=== PATIENT | male | born 1955 | race Asian ===

== ENCOUNTER 2021-04-13 09:51 | Inpatient (IN) | payer MEDICARE, OTHER ==
[~2021-04-13] VITALS: Ht 162.6 cm; Wt 65.8 kg
[2021-04-13] MEDS ORDERED: TACR1CAP12 PO (10:18)
[2021-04-13] MEDS ORDERED: INSLAN SQ (10:18)
[2021-04-13] MEDS ORDERED: MAGN400T7 PO (10:18)
[2021-04-13] MEDS ORDERED: DULA0.75 SQ (10:18)
[2021-04-13] MEDS ORDERED: CARV25 PO (10:18)
[2021-04-13] MEDS ORDERED: TRI115O TP (10:18)
[2021-04-13] MEDS ORDERED: NIFE-64 PO (10:18)
[2021-04-13] MEDS ORDERED: MYCO250C27 PO (10:18)
[2021-04-13] MEDS ORDERED: PRED-409 PO (10:18)
[2021-04-13] MEDS ORDERED: ASPI-1450 PO (10:18)
[2021-04-13] MEDS ORDERED: FOLI0.8T21 PO (10:18)
[2021-04-13] MEDS ORDERED: TAMS-13 PO (10:18)
[2021-04-13] MEDS ORDERED: FURO20 PO (10:18)
[2021-04-13] MEDS ORDERED: ATOR40TA28 PO (10:18)
[2021-04-13] MEDS ORDERED: OMEP20 PO (10:18)
[2021-04-13] MEDS ORDERED: HYDROCORTISONE SOD SUCC 100 MG/2 ML VIAL IVP ONE (11:45)
[2021-04-13] MEDS ORDERED: SODIUM CHLORIDE 0.9% 1,000 ML IV ONE ×2 (11:45→15:45)
[2021-04-13 12:28] LABS: EOSINOPHILS % (AUTO) 0.1 % (1.0-6.0); HEMATOCRIT 35.8 % (41-53); HEMOGLOBIN 12.1 g/dL (13.5-17.5); LYMPHOCYTES # (AUTO) 0.2 K/uL (1.0-4.8); LYMPHOCYTES % (AUTO) 1.9 % (22.0-44.0); MEAN CORPUSCULAR HEMOGLOBIN 29.3 pg (26.0-34.0); MEAN CORPUSCULAR HGB CONC 33.8 G/dL (31.0-37.0); MEAN CORPUSCULAR VOLUME 87 fL (80-100); MONOCYTES # (AUTO) 0.5 K/uL (0.1-1.0); MONOCYTES % (AUTO) 5.7 % (2.0-9.0); NEUTROPHILS # (AUTO) 7.5 K/uL (1.8-7.7); PLATELET COUNT (AUTO) 216 K/uL (150-450); RED BLOOD CELL COUNT(AUTO) 4.13 MIL/uL (4.50-5.90); RED CELL DISTRIBUTION WIDTH 13.2 % (11.5-14.5)
[2021-04-13 12:29] LABS: COVID AG,FIA SOURCE NASOPHARYNGEAL
[2021-04-13 12:29] LABS: NEUTROPHILS % (AUTO) 92.3 % (40.0-70.0)
[2021-04-13 12:34] LABS: CALCIUM, TOTAL 8.7 mg/dL (8.8-10.5); CREATININE 2.96 mg/dL (0.60-1.30); POTASSIUM 4.7 mmol/L (3.5-5.1)
[2021-04-13 12:40] LABS: ALBUMIN 3.1 g/dL (3.4-5.0); BILIRUBIN,TOTAL 0.7 mg/dL (0.1-1.0)
[2021-04-13] MEDS ORDERED: ACETAMINOPHEN 325 MG TABLET PO PRN (13:45)
[2021-04-13] MEDS ORDERED: ONDANSETRON HCL 4 MG/2 ML VIAL IVP PRN (13:45)
[2021-04-13 18:21] LABS: GLUCOMETER DEV NAME(LOC) ERT.5; GLUCOSE,POINT OF CARE 286 MG/DL (70-110)
[2021-04-13] MEDS ORDERED: IPRATROPIUM BROMIDE 0.5 MG/2.5 ML NEB SOLUTION NEB PRN (20:45)
[2021-04-13] MEDS ORDERED: ZOLPIDEM TARTRATE 5 MG TABLET PO PRN (20:45)
[2021-04-13] MEDS ORDERED: MORPHINE SULFATE 2 MG/ML SYRINGE IVP PRN (20:45)
[2021-04-13] MEDS ORDERED: AZITHROMYCIN 500 MG/NS 250 ML IV ONE (20:45)
[2021-04-13] MEDS ORDERED: ALBUTEROL SULFATE 2.5 MG/0.5 ML NEB SOLUTION NEB PRN (20:45)
[2021-04-13] MEDS ORDERED: HYDROCODONE/ACETAMINOPHEN 5-325 MG TABLET PO PRN (20:45)
[2021-04-13] MEDS ORDERED: BISACODYL 10 MG RECTAL RECTAL SUPPOSITORY PR PRN (20:45)
[2021-04-13] MEDS ORDERED: MAGNESIUM HYDROXIDE SUSPENSION 30 ML UDCUP PO PRN (20:45)
[2021-04-13] MEDS: TACROLIMUS 1 MG CAPSULE PO SCH (20:55)
[2021-04-13] MEDS: MYCOPHENOLATE MOFETIL 250 MG CAPSULE PO SCH (20:55)
[2021-04-13 21:00] VITALS: BP 120/63
[2021-04-13] MEDS: DOCUSATE SODIUM 100 MG CAPSULE PO SCH (21:00)
[2021-04-13] MEDS ORDERED: SODIUM CHLORIDE 0.9% 250 ML IV ONE (21:27)
[2021-04-13 22:54] LABS: INFLUENZA TYPE A NEGATIVE FOR TYPE A (NEGATIVE); INFLUENZA TYPE B NEGATIVE FOR TYPE B (NEGATIVE)
[2021-04-13] MEDS ORDERED: INSULIN REGULAR, HUMAN 100 UNITS/ML SQ ONE (23:15)
[2021-04-13] MEDS: CefTRIAXone 1 GM/DEXTROSE 50 ML IV SCH (23:46)
[2021-04-13] MEDS: HEPARIN SODIUM,PORCINE 5,000 UNITS/ML VIAL SQ SCH (23:46)
[2021-04-13 23:49] VITALS: BP 112/52
[2021-04-14 04:23] VITALS: BP 108/59
[2021-04-14] MEDS ORDERED: DEXTROSE 50%-WATER 25 GM/50 ML SYRINGE IVP PRN (06:30)
[2021-04-14] MEDS: INSULIN LISPRO 100 UNITS/ML SQ PRN ×3 (06:35→21:02)
[2021-04-14 07:55] VITALS: BP 110/58
[2021-04-14 08:16] LABS: CALCIUM, TOTAL 8.3 mg/dL (8.8-10.5); CREATININE 2.54 mg/dL (0.60-1.30); POTASSIUM 4.1 mmol/L (3.5-5.1)
[2021-04-14] MEDS ORDERED: [UNRECOGNIZED DRUG - OTHER] PO SCH (09:00)
[2021-04-14] MEDS: MYCOPHENOLATE MOFETIL 250 MG CAPSULE PO SCH ×2 (10:04→20:48)
[2021-04-14] MEDS: TACROLIMUS 1 MG CAPSULE PO SCH ×2 (10:05→20:48)
[2021-04-14] MEDS: PredniSONE 5 MG TABLET PO SCH (10:06)
[2021-04-14] MEDS: ASPIRIN 81 MG CHEWABLE TABLET PO SCH (10:06)
[2021-04-14] MEDS: ATORVASTATIN CALCIUM 40 MG TABLET PO SCH (10:06)
[2021-04-14] MEDS: TAMSULOSIN HCL 0.4 MG CAPSULE PO SCH (10:07)
[2021-04-14] MEDS: DOCUSATE SODIUM 100 MG CAPSULE PO SCH ×2 (10:07→20:49)
[2021-04-14] MEDS: PANTOPRAZOLE SODIUM 40 MG/VIAL IVP SCH (10:07)
[2021-04-14] MEDS: HEPARIN SODIUM,PORCINE 5,000 UNITS/ML VIAL SQ SCH ×2 (10:09→18:27)
[2021-04-14] MEDS: ETHYL ALCOHOL 62% ANTISEPTIC NASAL INHALANT 0.6 ML AMPUL NASAL SCH ×2 (10:12→20:48)
[2021-04-14] MEDS: INSULIN GLARGINE,HUM.REC.ANLOG 100 UNITS/ML SQ SCH (10:14)
[2021-04-14] MEDS: OMEPRAZOLE 20 MG CAPSULE PO SCH (10:16)
[2021-04-14] MEDS ORDERED: SODIUM CHLORIDE 0.9% 1,000 ML IV ONE (10:45)
[2021-04-14 11:57] VITALS: BP 127/62
[2021-04-14] MEDS: VITAMIN B COMP/VIT C/FOLIC ACID CAPSULE PO SCH (12:08)
[2021-04-14 12:27] LABS: GLUCOMETER DEV NAME(LOC) 5N.3; GLUCOSE,POINT OF CARE 411 MG/DL (70-110)
[2021-04-14 16:15] VITALS: BP 105/51
[2021-04-14 17:52] LABS: GLUCOMETER DEV NAME(LOC) 5N.1C; GLUCOSE,POINT OF CARE 116 MG/DL (70-110)
[2021-04-14 20:25] VITALS: BP 135/73
[2021-04-14] MEDS: CefTRIAXone 1 GM/DEXTROSE 50 ML IV SCH (20:48)
[2021-04-14 23:45] VITALS: BP 102/74
[2021-04-15] MEDS: HEPARIN SODIUM,PORCINE 5,000 UNITS/ML VIAL SQ SCH ×4 (00:37→23:57)
[2021-04-15 06:49] LABS: CREATININE 2.56 mg/dL (0.60-1.30); MAGNESIUM 1.6 mg/dL (1.80-2.40); PHOSPHORUS 3.2 mg/dL (2.5-4.9); POTASSIUM 4.6 mmol/L (3.5-5.1)
[2021-04-15 08:11] LABS: GLUCOMETER DEV NAME(LOC) 5N.1C; GLUCOSE,POINT OF CARE 216 MG/DL (70-110)
[2021-04-15 08:11] LABS: GLUCOMETER DEV NAME(LOC) 5N.1C; GLUCOSE,POINT OF CARE 71 MG/DL (70-110)
[2021-04-15 08:11] LABS: GLUCOMETER DEV NAME(LOC) 5N.1C; GLUCOSE,POINT OF CARE 223 MG/DL (70-110)
[2021-04-15 08:18] VITALS: BP 140/67
[2021-04-15] MEDS: TACROLIMUS 1 MG CAPSULE PO SCH ×2 (08:34→20:28)
[2021-04-15] MEDS: ATORVASTATIN CALCIUM 40 MG TABLET PO SCH (08:34)
[2021-04-15] MEDS: TAMSULOSIN HCL 0.4 MG CAPSULE PO SCH (08:34)
[2021-04-15] MEDS: MYCOPHENOLATE MOFETIL 250 MG CAPSULE PO SCH ×2 (08:34→20:28)
[2021-04-15] MEDS: VITAMIN B COMP/VIT C/FOLIC ACID CAPSULE PO SCH (08:34)
[2021-04-15] MEDS: ASPIRIN 81 MG CHEWABLE TABLET PO SCH (08:35)
[2021-04-15] MEDS: PANTOPRAZOLE SODIUM 40 MG/VIAL IVP SCH (08:35)
[2021-04-15] MEDS: DOCUSATE SODIUM 100 MG CAPSULE PO SCH ×2 (08:35→20:29)
[2021-04-15] MEDS: ETHYL ALCOHOL 62% ANTISEPTIC NASAL INHALANT 0.6 ML AMPUL NASAL SCH ×2 (08:35→20:27)
[2021-04-15] MEDS: OMEPRAZOLE 20 MG CAPSULE PO SCH (08:35)
[2021-04-15] MEDS: PredniSONE 5 MG TABLET PO SCH (08:37)
[2021-04-15] MEDS: INSULIN GLARGINE,HUM.REC.ANLOG 100 UNITS/ML SQ SCH (08:39)
[2021-04-15] MEDS: INSULIN LISPRO 100 UNITS/ML SQ PRN ×3 (11:10→20:27)
[2021-04-15 11:16] LABS: GLUCOMETER DEV NAME(LOC) 5N.1C; GLUCOSE,POINT OF CARE 117 MG/DL (70-110)
[2021-04-15 11:36] VITALS: BP 142/65
[2021-04-15 14:44] LABS: C-REACTIVE PROTEIN QUANT 6.28 mg/dL (0.00-0.30)
[2021-04-15 16:02] VITALS: BP 138/79
[2021-04-15 17:36] LABS: APPEARANCE,URINE CLEAR (CLEAR); BILIRUBIN,URINE NEGATIVE (NEGATIVE); GLUCOSE, URINE (UA) NEGATIVE (NEGATIVE); KETONES,URINE NEGATIVE (NEGATIVE); LEUKOCYTE ESTERASE ,URINE NEGATIVE (NEGATIVE); NITRATE,URINE NEGATIVE (NEGATIVE); OCCULT BLOOD,URINE NEGATIVE (NEGATIVE); PH,URINE 5.5 (5.0-8.0); PROTEIN,URINE TRACE (NEGATIVE); UROBILINOGEN,URINE 0.2 mg/dL (<=1.0)
[2021-04-15 17:37] LABS: CREATININE,URINE RANDOM 116.8 mg/dL (30.0-125.0); SODIUM,URINE RANDOM 45 mmol/l (20-110)
[2021-04-15 20:13] VITALS: BP 141/74
[2021-04-15] MEDS: CefTRIAXone 1 GM/DEXTROSE 50 ML IV SCH (20:27)
[2021-04-15 20:52] LABS: GLUCOMETER DEV NAME(LOC) 5N.3; GLUCOSE,POINT OF CARE 194 MG/DL (70-110)
[2021-04-15 20:52] LABS: GLUCOMETER DEV NAME(LOC) 5N.3; GLUCOSE,POINT OF CARE 210 MG/DL (70-110)
[2021-04-16 00:45] VITALS: BP 115/63
[2021-04-16 05:04] VITALS: BP 138/80
[2021-04-16 06:07] LABS: GLUCOMETER DEV NAME(LOC) 5N.1C; GLUCOSE,POINT OF CARE 145 MG/DL (70-110)
[2021-04-16 07:46] LABS: GLUCOMETER DEV NAME(LOC) 5N.3; GLUCOSE,POINT OF CARE 105 MG/DL (70-110)
[2021-04-16 07:55] VITALS: BP 139/78
[2021-04-16] MEDS: TAMSULOSIN HCL 0.4 MG CAPSULE PO SCH (08:02)
[2021-04-16] MEDS: OMEPRAZOLE 20 MG CAPSULE PO SCH (08:02)
[2021-04-16] MEDS: DOCUSATE SODIUM 100 MG CAPSULE PO SCH ×2 (08:02→19:59)
[2021-04-16] MEDS: HEPARIN SODIUM,PORCINE 5,000 UNITS/ML VIAL SQ SCH ×2 (08:02→16:05)
[2021-04-16] MEDS: ASPIRIN 81 MG CHEWABLE TABLET PO SCH (08:02)
[2021-04-16] MEDS: PANTOPRAZOLE SODIUM 40 MG/VIAL IVP SCH (08:02)
[2021-04-16] MEDS: TACROLIMUS 1 MG CAPSULE PO SCH ×2 (08:02→19:59)
[2021-04-16] MEDS: ATORVASTATIN CALCIUM 40 MG TABLET PO SCH (08:02)
[2021-04-16] MEDS: VITAMIN B COMP/VIT C/FOLIC ACID CAPSULE PO SCH (08:03)
[2021-04-16] MEDS: PredniSONE 5 MG TABLET PO SCH (08:03)
[2021-04-16] MEDS: ETHYL ALCOHOL 62% ANTISEPTIC NASAL INHALANT 0.6 ML AMPUL NASAL SCH ×2 (08:11→19:59)
[2021-04-16] MEDS: MYCOPHENOLATE MOFETIL 250 MG CAPSULE PO SCH ×2 (08:11→19:59)
[2021-04-16] MEDS: INSULIN GLARGINE,HUM.REC.ANLOG 100 UNITS/ML SQ SCH (08:19)
[2021-04-16 10:28] LABS: CALCIUM, TOTAL 9.1 mg/dL (8.8-10.5); CREATININE 2.99 mg/dL (0.60-1.30); PHOSPHORUS 2.6 mg/dL (2.5-4.9); POTASSIUM 4.3 mmol/L (3.5-5.1)
[2021-04-16 11:16] VITALS: BP 143/84
[2021-04-16 15:22] VITALS: BP 138/67
[2021-04-16 15:36] LABS: GLUCOMETER DEV NAME(LOC) 5N.1C; GLUCOSE,POINT OF CARE 111 MG/DL (70-110)
[2021-04-16] MEDS: INSULIN LISPRO 100 UNITS/ML SQ PRN (17:24)
[2021-04-16 17:31] LABS: GLUCOMETER DEV NAME(LOC) 5N.3; GLUCOSE,POINT OF CARE 186 MG/DL (70-110)
[2021-04-16] MEDS: CefTRIAXone 1 GM/DEXTROSE 50 ML IV SCH (19:58)
[2021-04-16 20:08] VITALS: BP 149/73
[2021-04-17] MEDS: HEPARIN SODIUM,PORCINE 5,000 UNITS/ML VIAL SQ SCH ×3 (00:21→15:52)
[2021-04-17 00:44] VITALS: BP 135/70
[2021-04-17 04:20] VITALS: BP 150/88
[2021-04-17 05:42] LABS: GLUCOMETER DEV NAME(LOC) 5N.1C; GLUCOSE,POINT OF CARE 110 MG/DL (70-110)
[2021-04-17 06:11] LABS: GLUCOMETER DEV NAME(LOC) 5N.3; GLUCOSE,POINT OF CARE 101 MG/DL (70-110)
[2021-04-17 07:45] LABS: CALCIUM, TOTAL 8.9 mg/dL (8.8-10.5); CREATININE 3.22 mg/dL (0.60-1.30); POTASSIUM 4.4 mmol/L (3.5-5.1)
[2021-04-17] MEDS: DOCUSATE SODIUM 100 MG CAPSULE PO SCH ×2 (07:47→21:46)
[2021-04-17] MEDS: ATORVASTATIN CALCIUM 40 MG TABLET PO SCH (07:47)
[2021-04-17] MEDS: VITAMIN B COMP/VIT C/FOLIC ACID CAPSULE PO SCH (07:47)
[2021-04-17] MEDS: TAMSULOSIN HCL 0.4 MG CAPSULE PO SCH (07:47)
[2021-04-17] MEDS: ASPIRIN 81 MG CHEWABLE TABLET PO SCH (07:47)
[2021-04-17] MEDS: OMEPRAZOLE 20 MG CAPSULE PO SCH (07:47)
[2021-04-17] MEDS: ETHYL ALCOHOL 62% ANTISEPTIC NASAL INHALANT 0.6 ML AMPUL NASAL SCH ×2 (07:55→21:52)
[2021-04-17] MEDS: PANTOPRAZOLE SODIUM 40 MG/VIAL IVP SCH (07:55)
[2021-04-17] MEDS: INSULIN GLARGINE,HUM.REC.ANLOG 100 UNITS/ML SQ SCH (07:56)
[2021-04-17 08:15] VITALS: BP 142/84
[2021-04-17] MEDS: TACROLIMUS 1 MG CAPSULE PO SCH ×2 (08:55→21:46)
[2021-04-17] MEDS: PredniSONE 5 MG TABLET PO SCH (08:55)
[2021-04-17] MEDS: MYCOPHENOLATE MOFETIL 250 MG CAPSULE PO SCH ×2 (08:55→21:46)
[2021-04-17] MEDS ORDERED: VANCOMYCIN HCL 1 GM/D5% WATER 200 ML IV PRN (09:45)
[2021-04-17] MEDS ORDERED: VANCOMYCIN HCL 1 GM/D5% WATER 200 ML IV ONE (10:00)
[2021-04-17] MEDS: PIPERACILLIN SODIUM/TAZOBACTAM 2.25 GM in DEXTROSE 5%-WATER 50 ML IV SCH ×2 (10:31→21:46)
[2021-04-17 10:48] VITALS: BP 127/77
[2021-04-17] MEDS ORDERED: MIDAZOLAM HCL 2 MG/2 ML VIAL IVP ONE (13:45)
[2021-04-17] MEDS ORDERED: FentaNYL CITRATE PF 100 MCG/2 ML VIAL IVP ONE (13:45)
[2021-04-17] MEDS ORDERED: FentaNYL CITRATE PF 100 MCG/2 ML VIAL ONE (15:14)
[2021-04-17] MEDS ORDERED: NALOXONE HCL 0.4 MG/ML VIAL ONE (15:14)
[2021-04-17] MEDS ORDERED: GELATIN SPONGE,ABSORBABLE 100 MM TP ONE (15:45)
[2021-04-17] MEDS ORDERED: GELATIN SPONGE,ABSORBABLE 12-7 MM TP ONE (15:46)
[2021-04-17] MEDS ORDERED: GELATIN SPONGE,ABSORBABLE 50 MM TP ONE (15:46)
[2021-04-17 18:21] LABS: GLUCOMETER DEV NAME(LOC) 5N.1C; GLUCOSE,POINT OF CARE 101 MG/DL (70-110)
[2021-04-17 18:36] LABS: GLUCOMETER DEV NAME(LOC) 5N.1C; GLUCOSE,POINT OF CARE 81 MG/DL (70-110)
[2021-04-17 20:30] VITALS: BP 129/62
[2021-04-17 22:31] LABS: GLUCOMETER DEV NAME(LOC) 5N.1C; GLUCOSE,POINT OF CARE 112 MG/DL (70-110)
[2021-04-18] VITALS (7 sets, daily range): BP systolic 136–157; BP diastolic 62–91
[2021-04-18] MEDS: HEPARIN SODIUM,PORCINE 5,000 UNITS/ML VIAL SQ SCH ×3 (00:06→16:09)
[2021-04-18] MEDS: ACETAMINOPHEN 325 MG TABLET PO PRN (05:37)
[2021-04-18] MEDS: PIPERACILLIN SODIUM/TAZOBACTAM 2.25 GM in DEXTROSE 5%-WATER 50 ML IV SCH ×3 (05:37→21:56)
[2021-04-18] MEDS: DOCUSATE SODIUM 100 MG CAPSULE PO SCH ×2 (08:05→20:15)
[2021-04-18] MEDS: ATORVASTATIN CALCIUM 40 MG TABLET PO SCH (08:05)
[2021-04-18] MEDS: ASPIRIN 81 MG CHEWABLE TABLET PO SCH (08:05)
[2021-04-18] MEDS: PredniSONE 5 MG TABLET PO SCH (08:06)
[2021-04-18] MEDS: OMEPRAZOLE 20 MG CAPSULE PO SCH (08:06)
[2021-04-18] MEDS: MYCOPHENOLATE MOFETIL 250 MG CAPSULE PO SCH (08:06)
[2021-04-18] MEDS: TACROLIMUS 1 MG CAPSULE PO SCH ×2 (08:06→20:15)
[2021-04-18] MEDS: TAMSULOSIN HCL 0.4 MG CAPSULE PO SCH (08:06)
[2021-04-18] MEDS: VITAMIN B COMP/VIT C/FOLIC ACID CAPSULE PO SCH (08:06)
[2021-04-18] MEDS: PANTOPRAZOLE SODIUM 40 MG/VIAL IVP SCH (08:06)
[2021-04-18] MEDS: INSULIN GLARGINE,HUM.REC.ANLOG 100 UNITS/ML SQ SCH (08:16)
[2021-04-18] MEDS: ETHYL ALCOHOL 62% ANTISEPTIC NASAL INHALANT 0.6 ML AMPUL NASAL SCH ×2 (08:18→20:15)
[2021-04-18 08:26] LABS: C-REACTIVE PROTEIN QUANT 9.2 mg/dL (0.00-0.30); CALCIUM, TOTAL 8.9 mg/dL (8.8-10.5); CREATININE 2.98 mg/dL (0.60-1.30); POTASSIUM 4.4 mmol/L (3.5-5.1)
[2021-04-18 10:16] LABS: GLUCOMETER DEV NAME(LOC) 5S.2B; GLUCOSE,POINT OF CARE 179 MG/DL (70-110)
[2021-04-18 11:31] LABS: GLUCOMETER DEV NAME(LOC) 5N.1C; GLUCOSE,POINT OF CARE 44 MG/DL (70-110)
[2021-04-18 12:13] LABS: ALBUMIN 2.1 g/dL (3.4-5.0); BILIRUBIN,DIRECT 0.2 mg/dL (0.00-0.20); BILIRUBIN,TOTAL 0.4 mg/dL (0.1-1.0); TOTAL PROTEIN, SERUM 5.9 g/dL (6.4-8.2)
[2021-04-18] MEDS ORDERED: REMDESIVIR 200 MG in SODIUM CHLORIDE 0.9% 250 ML IV ONE (12:30)
[2021-04-18 13:06] LABS: ALBUMIN URINE (ELP) 9.1 %
[2021-04-18] MEDS: AZITHROMYCIN 500 MG TABLET PO SCH (16:09)
[2021-04-18] MEDS: INSULIN LISPRO 100 UNITS/ML SQ PRN (17:31)
[2021-04-18] MEDS ORDERED: PROMETH/PHENYLEPHRINE/CODEINE 5 ML ORAL.SYG PO PRN (21:45)
[2021-04-18 22:51] LABS: GLUCOMETER DEV NAME(LOC) 5N.1C; GLUCOSE,POINT OF CARE 128 MG/DL (70-110)
[2021-04-18 22:51] LABS: GLUCOMETER DEV NAME(LOC) 5N.1C; GLUCOSE,POINT OF CARE 202 MG/DL (70-110)
[2021-04-19] MEDS: HEPARIN SODIUM,PORCINE 5,000 UNITS/ML VIAL SQ SCH ×4 (00:17→22:08)
[2021-04-19] MEDS: BENZONATATE 100 MG CAPSULE PO SCH ×4 (00:17→22:06)
[2021-04-19 05:07] VITALS: BP 144/76
[2021-04-19] MEDS: PIPERACILLIN SODIUM/TAZOBACTAM 2.25 GM in DEXTROSE 5%-WATER 50 ML IV SCH ×3 (06:00→22:07)
[2021-04-19 06:21] LABS: GLUCOMETER DEV NAME(LOC) 5N.3; GLUCOSE,POINT OF CARE 83 MG/DL (70-110)
[2021-04-19 06:46] LABS: GLUCOMETER DEV NAME(LOC) 5N.1C; GLUCOSE,POINT OF CARE 110 MG/DL (70-110)
[2021-04-19 07:06] LABS: BASOPHILS % (AUTO) 0.4 % (0.0-2.0); EOSINOPHILS % (AUTO) 3.2 % (1.0-6.0); HEMATOCRIT 33.3 % (41-53); HEMOGLOBIN 11.2 g/dL (13.5-17.5); LYMPHOCYTES # (AUTO) 0.3 K/uL (1.0-4.8); LYMPHOCYTES % (AUTO) 5.1 % (22.0-44.0); MEAN CORPUSCULAR HEMOGLOBIN 29.8 pg (26.0-34.0); MEAN CORPUSCULAR HGB CONC 33.5 G/dL (31.0-37.0); MEAN CORPUSCULAR VOLUME 89 fL (80-100); MONOCYTES # (AUTO) 0.7 K/uL (0.1-1.0); MONOCYTES % (AUTO) 11.5 % (2.0-9.0); NEUTROPHILS # (AUTO) 5.1 K/uL (1.8-7.7); NEUTROPHILS % (AUTO) 79.8 % (40.0-70.0); PLATELET COUNT (AUTO) 267 K/uL (150-450); RED BLOOD CELL COUNT(AUTO) 3.75 MIL/uL (4.50-5.90); RED CELL DISTRIBUTION WIDTH 13.9 % (11.5-14.5)
[2021-04-19 07:52] LABS: ALBUMIN 2.2 g/dL (3.4-5.0); BILIRUBIN,TOTAL 0.4 mg/dL (0.1-1.0); C-REACTIVE PROTEIN QUANT 9.81 mg/dL (0.00-0.30); CALCIUM, TOTAL 9.5 mg/dL (8.8-10.5); CREATININE 3.2 mg/dL (0.60-1.30); POTASSIUM 4.7 mmol/L (3.5-5.1); TOTAL PROTEIN, SERUM 6.6 g/dL (6.4-8.2)
[2021-04-19] MEDS: DOCUSATE SODIUM 100 MG CAPSULE PO SCH ×2 (08:11→22:06)
[2021-04-19] MEDS: VITAMIN B COMP/VIT C/FOLIC ACID CAPSULE PO SCH (08:11)
[2021-04-19] MEDS: ASPIRIN 81 MG CHEWABLE TABLET PO SCH (08:12)
[2021-04-19] MEDS: TAMSULOSIN HCL 0.4 MG CAPSULE PO SCH (08:12)
[2021-04-19] MEDS: AZITHROMYCIN 500 MG TABLET PO SCH (08:12)
[2021-04-19] MEDS: OMEPRAZOLE 20 MG CAPSULE PO SCH (08:13)
[2021-04-19] MEDS: ATORVASTATIN CALCIUM 40 MG TABLET PO SCH (08:13)
[2021-04-19] MEDS: PredniSONE 5 MG TABLET PO SCH (08:13)
[2021-04-19] MEDS: TACROLIMUS 1 MG CAPSULE PO SCH (08:13)
[2021-04-19] MEDS: ETHYL ALCOHOL 62% ANTISEPTIC NASAL INHALANT 0.6 ML AMPUL NASAL SCH ×2 (08:14→22:09)
[2021-04-19] MEDS: PANTOPRAZOLE SODIUM 40 MG/VIAL IVP SCH (08:14)
[2021-04-19] MEDS: INSULIN GLARGINE,HUM.REC.ANLOG 100 UNITS/ML SQ SCH (08:20)
[2021-04-19 08:25] VITALS: BP 132/88
[2021-04-19 11:53] VITALS: BP 128/78
[2021-04-19 12:52] LABS: GLUCOMETER DEV NAME(LOC) 5N.1C; GLUCOSE,POINT OF CARE 92 MG/DL (70-110)
[2021-04-19] MEDS: REMDESIVIR 100 MG in SODIUM CHLORIDE 0.9% 250 ML IV SCH (13:49)
[2021-04-19 16:55] VITALS: BP 130/84
[2021-04-19 19:20] VITALS: BP 138/80
[2021-04-19] MEDS: TACROLIMUS 0.5 MG CAPSULE PO SCH (22:13)
[2021-04-19 23:45] VITALS: BP 146/72
[2021-04-20] VITALS (8 sets, daily range): BP systolic 147–160; BP diastolic 67–93
[2021-04-20] MEDS: PIPERACILLIN SODIUM/TAZOBACTAM 2.25 GM in DEXTROSE 5%-WATER 50 ML IV SCH ×3 (05:06→21:02)
[2021-04-20 07:11] LABS: GLUCOMETER DEV NAME(LOC) 5N.3; GLUCOSE,POINT OF CARE 237 MG/DL (70-110)
[2021-04-20 07:12] LABS: GLUCOMETER DEV NAME(LOC) 5N.3; GLUCOSE,POINT OF CARE 69 MG/DL (70-110)
[2021-04-20 07:21] LABS: ALBUMIN 2.4 g/dL (3.4-5.0); BILIRUBIN,TOTAL 0.5 mg/dL (0.1-1.0); C-REACTIVE PROTEIN QUANT 7.3 mg/dL (0.00-0.30); CALCIUM, TOTAL 9.7 mg/dL (8.8-10.5); CREATININE 3.39 mg/dL (0.60-1.30); POTASSIUM 5.2 mmol/L (3.5-5.1); TOTAL PROTEIN, SERUM 6.9 g/dL (6.4-8.2)
[2021-04-20] MEDS: DOCUSATE SODIUM 100 MG CAPSULE PO SCH ×2 (08:42→21:01)
[2021-04-20] MEDS: VITAMIN B COMP/VIT C/FOLIC ACID CAPSULE PO SCH (08:42)
[2021-04-20] MEDS: TACROLIMUS 0.5 MG CAPSULE PO SCH ×2 (08:42→21:01)
[2021-04-20] MEDS: PredniSONE 5 MG TABLET PO SCH (08:42)
[2021-04-20] MEDS: ASPIRIN 81 MG CHEWABLE TABLET PO SCH (08:42)
[2021-04-20] MEDS: BENZONATATE 100 MG CAPSULE PO SCH ×3 (08:43→23:55)
[2021-04-20] MEDS: TAMSULOSIN HCL 0.4 MG CAPSULE PO SCH (08:43)
[2021-04-20] MEDS: ATORVASTATIN CALCIUM 40 MG TABLET PO SCH (08:43)
[2021-04-20] MEDS: HEPARIN SODIUM,PORCINE 5,000 UNITS/ML VIAL SQ SCH ×3 (08:43→23:55)
[2021-04-20] MEDS: PANTOPRAZOLE SODIUM 40 MG/VIAL IVP SCH (08:44)
[2021-04-20] MEDS: ETHYL ALCOHOL 62% ANTISEPTIC NASAL INHALANT 0.6 ML AMPUL NASAL SCH ×2 (08:44→20:55)
[2021-04-20] MEDS: OMEPRAZOLE 20 MG CAPSULE PO SCH (08:57)
[2021-04-20] MEDS ORDERED: INSULIN GLARGINE,HUM.REC.ANLOG 100 UNITS/ML SQ SCH (09:00)
[2021-04-20 10:01] LABS: GLUCOMETER DEV NAME(LOC) 5N.3; GLUCOSE,POINT OF CARE 164 MG/DL (70-110)
[2021-04-20 10:01] LABS: GLUCOMETER DEV NAME(LOC) 5N.3; GLUCOSE,POINT OF CARE 66 MG/DL (70-110)
[2021-04-20 12:11] LABS: GLUCOMETER DEV NAME(LOC) 5N.3; GLUCOSE,POINT OF CARE 145 MG/DL (70-110)
[2021-04-20] MEDS: INSULIN LISPRO 100 UNITS/ML SQ PRN ×2 (12:24→21:11)
[2021-04-20] MEDS: REMDESIVIR 100 MG in SODIUM CHLORIDE 0.9% 250 ML IV SCH (12:25)
[2021-04-20] MEDS: GuaiFENesin SR 600 MG ER TABLET PO SCH ×2 (14:55→21:01)
[2021-04-20 17:42] LABS: GLUCOMETER DEV NAME(LOC) 5N.1C; GLUCOSE,POINT OF CARE 125 MG/DL (70-110)
[2021-04-20] MEDS: SODIUM ZIRCONIUM CYCLOSILICATE 5 GM POWDER PACKET PO SCH (17:52)
[2021-04-20] MEDS: DOXYCYCLINE HYCLATE 100 MG TABLET PO SCH (21:01)
[2021-04-20 21:27] LABS: GLUCOMETER DEV NAME(LOC) 5N.3; GLUCOSE,POINT OF CARE 175 MG/DL (70-110)
[2021-04-21 04:23] VITALS: BP 146/76
[2021-04-21] MEDS: PIPERACILLIN SODIUM/TAZOBACTAM 2.25 GM in DEXTROSE 5%-WATER 50 ML IV SCH ×3 (05:37→20:24)
[2021-04-21 07:25] VITALS: BP 155/85
[2021-04-21 07:56] LABS: GLUCOMETER DEV NAME(LOC) 5S.2B; GLUCOSE,POINT OF CARE 76 MG/DL (70-110)
[2021-04-21] MEDS: ASPIRIN 81 MG CHEWABLE TABLET PO SCH (08:54)
[2021-04-21] MEDS: DOCUSATE SODIUM 100 MG CAPSULE PO SCH ×2 (08:54→20:23)
[2021-04-21] MEDS: SODIUM ZIRCONIUM CYCLOSILICATE 5 GM POWDER PACKET PO SCH (08:54)
[2021-04-21] MEDS: TACROLIMUS 0.5 MG CAPSULE PO SCH ×2 (08:54→20:23)
[2021-04-21] MEDS: DOXYCYCLINE HYCLATE 100 MG TABLET PO SCH ×2 (08:54→20:23)
[2021-04-21] MEDS: GuaiFENesin SR 600 MG ER TABLET PO SCH ×2 (08:54→20:23)
[2021-04-21] MEDS: ATORVASTATIN CALCIUM 40 MG TABLET PO SCH (08:55)
[2021-04-21] MEDS: TAMSULOSIN HCL 0.4 MG CAPSULE PO SCH (08:55)
[2021-04-21] MEDS: HEPARIN SODIUM,PORCINE 5,000 UNITS/ML VIAL SQ SCH ×3 (08:55→23:40)
[2021-04-21] MEDS: VITAMIN B COMP/VIT C/FOLIC ACID CAPSULE PO SCH (08:55)
[2021-04-21] MEDS: PredniSONE 5 MG TABLET PO SCH (08:55)
[2021-04-21] MEDS: OMEPRAZOLE 20 MG CAPSULE PO SCH (09:00)
[2021-04-21] MEDS: PANTOPRAZOLE SODIUM 40 MG/VIAL IVP SCH (09:00)
[2021-04-21] MEDS: ETHYL ALCOHOL 62% ANTISEPTIC NASAL INHALANT 0.6 ML AMPUL NASAL SCH ×2 (09:01→20:23)
[2021-04-21 09:14] LABS: ALBUMIN 2.3 g/dL (3.4-5.0); BILIRUBIN,TOTAL 0.5 mg/dL (0.1-1.0); C-REACTIVE PROTEIN QUANT 4.92 mg/dL (0.00-0.30); CALCIUM, TOTAL 9.4 mg/dL (8.8-10.5); CREATININE 3.39 mg/dL (0.60-1.30); POTASSIUM 5.6 mmol/L (3.5-5.1); TOTAL PROTEIN, SERUM 6.6 g/dL (6.4-8.2)
[2021-04-21] MEDS: BENZONATATE 100 MG CAPSULE PO SCH ×3 (10:14→23:40)
[2021-04-21] MEDS: INSULIN GLARGINE,HUM.REC.ANLOG 100 UNITS/ML SQ SCH (10:15)
[2021-04-21 10:38] VITALS: BP 155/85
[2021-04-21] MEDS: REMDESIVIR 100 MG in SODIUM CHLORIDE 0.9% 250 ML IV SCH (12:19)
[2021-04-21 12:41] LABS: GLUCOMETER DEV NAME(LOC) 5S.2B; GLUCOSE,POINT OF CARE 118 MG/DL (70-110)
[2021-04-21 12:41] LABS: GLUCOMETER DEV NAME(LOC) 5N.1C; GLUCOSE,POINT OF CARE 133 MG/DL (70-110)
[2021-04-21 13:00] VITALS: BP 152/71
[2021-04-21 18:07] VITALS: BP 155/89
[2021-04-21 20:15] VITALS: BP 151/82
[2021-04-21 21:41] LABS: GLUCOMETER DEV NAME(LOC) 5N.3; GLUCOSE,POINT OF CARE 112 MG/DL (70-110)
[2021-04-21 21:41] LABS: GLUCOMETER DEV NAME(LOC) 5N.3; GLUCOSE,POINT OF CARE 69 MG/DL (70-110)
[2021-04-22] VITALS (9 sets, daily range): BP systolic 132–172; BP diastolic 72–95
[2021-04-22] MEDS: PIPERACILLIN SODIUM/TAZOBACTAM 2.25 GM in DEXTROSE 5%-WATER 50 ML IV SCH ×3 (05:22→22:17)
[2021-04-22 05:41] LABS: GLUCOMETER DEV NAME(LOC) 5S.2B; GLUCOSE,POINT OF CARE 70 MG/DL (70-110)
[2021-04-22 07:56] LABS: ALBUMIN 2.2 g/dL (3.4-5.0); BILIRUBIN,TOTAL 0.5 mg/dL (0.1-1.0); C-REACTIVE PROTEIN QUANT 4.73 mg/dL (0.00-0.30); CALCIUM, TOTAL 9.3 mg/dL (8.8-10.5); CREATININE 3.02 mg/dL (0.60-1.30); PHOSPHORUS 3.1 mg/dL (2.5-4.9); POTASSIUM 5.2 mmol/L (3.5-5.1); TOTAL PROTEIN, SERUM 6.2 g/dL (6.4-8.2)
[2021-04-22] MEDS: PredniSONE 5 MG TABLET PO SCH (08:38)
[2021-04-22] MEDS: SODIUM ZIRCONIUM CYCLOSILICATE 5 GM POWDER PACKET PO SCH (08:38)
[2021-04-22] MEDS: PANTOPRAZOLE SODIUM 40 MG/VIAL IVP SCH (08:38)
[2021-04-22] MEDS: GuaiFENesin SR 600 MG ER TABLET PO SCH ×2 (08:39→21:12)
[2021-04-22] MEDS: VITAMIN B COMP/VIT C/FOLIC ACID CAPSULE PO SCH (08:39)
[2021-04-22] MEDS: TACROLIMUS 0.5 MG CAPSULE PO SCH ×2 (08:39→21:12)
[2021-04-22] MEDS: ASPIRIN 81 MG CHEWABLE TABLET PO SCH (08:39)
[2021-04-22] MEDS: DOXYCYCLINE HYCLATE 100 MG TABLET PO SCH ×2 (08:40→21:12)
[2021-04-22] MEDS: ATORVASTATIN CALCIUM 40 MG TABLET PO SCH (08:40)
[2021-04-22] MEDS: DOCUSATE SODIUM 100 MG CAPSULE PO SCH ×2 (08:40→21:12)
[2021-04-22] MEDS: HEPARIN SODIUM,PORCINE 5,000 UNITS/ML VIAL SQ SCH ×3 (08:40→23:53)
[2021-04-22] MEDS: OMEPRAZOLE 20 MG CAPSULE PO SCH (08:40)
[2021-04-22] MEDS: TAMSULOSIN HCL 0.4 MG CAPSULE PO SCH (08:41)
[2021-04-22] MEDS: BENZONATATE 100 MG CAPSULE PO SCH ×3 (10:12→23:53)
[2021-04-22] MEDS: ETHYL ALCOHOL 62% ANTISEPTIC NASAL INHALANT 0.6 ML AMPUL NASAL SCH ×2 (10:12→21:13)
[2021-04-22] MEDS: INSULIN GLARGINE,HUM.REC.ANLOG 100 UNITS/ML SQ SCH (10:16)
[2021-04-22] MEDS: HydrALAZINE HCL 20 MG/ML VIAL IVP PRN (10:17)
[2021-04-22 10:56] LABS: GLUCOMETER DEV NAME(LOC) 5N.1C; GLUCOSE,POINT OF CARE 165 MG/DL (70-110)
[2021-04-22] MEDS: REMDESIVIR 100 MG in SODIUM CHLORIDE 0.9% 250 ML IV SCH (12:35)
[2021-04-22 15:06] LABS: LEGIONELLA PNEUMO AG URINE Negative (Negative); S PNEUMO SOURCE Urine; STREP PNEUMONIAE AG URINE Negative (Negative)
[2021-04-22] MEDS: INSULIN LISPRO 100 UNITS/ML SQ PRN (18:02)
[2021-04-22 19:21] LABS: GLUCOMETER DEV NAME(LOC) 5S.1; GLUCOSE,POINT OF CARE 175 MG/DL (70-110)
[2021-04-22 20:01] LABS: GLUCOMETER DEV NAME(LOC) 5N.1C; GLUCOSE,POINT OF CARE 122 MG/DL (70-110)
[2021-04-22] MEDS: ACETAMINOPHEN 325 MG TABLET PO PRN (21:12)
[2021-04-23 05:26] VITALS: BP 149/71
[2021-04-23] MEDS: PIPERACILLIN SODIUM/TAZOBACTAM 2.25 GM in DEXTROSE 5%-WATER 50 ML IV SCH ×3 (06:08→20:50)
[2021-04-23 06:36] LABS: GLUCOMETER DEV NAME(LOC) 5N.3; GLUCOSE,POINT OF CARE 159 MG/DL (70-110)
[2021-04-23 06:44] LABS: MAGNESIUM 1.5 mg/dL (1.80-2.40); PHOSPHORUS 3.9 mg/dL (2.5-4.9)
[2021-04-23 06:53] LABS: C-REACTIVE PROTEIN QUANT 6.25 mg/dL (0.00-0.30); CALCIUM, TOTAL 9.4 mg/dL (8.8-10.5); CREATININE 2.75 mg/dL (0.60-1.30); POTASSIUM 5.3 mmol/L (3.5-5.1)
[2021-04-23 07:01] LABS: GLUCOMETER DEV NAME(LOC) 5S.2B; GLUCOSE,POINT OF CARE 71 MG/DL (70-110)
[2021-04-23 08:42] VITALS: BP 130/80
[2021-04-23] MEDS: PANTOPRAZOLE SODIUM 40 MG/VIAL IVP SCH (09:19)
[2021-04-23] MEDS: BENZONATATE 100 MG CAPSULE PO SCH ×2 (09:19→16:53)
[2021-04-23] MEDS: HEPARIN SODIUM,PORCINE 5,000 UNITS/ML VIAL SQ SCH ×2 (09:19→16:53)
[2021-04-23] MEDS: VITAMIN B COMP/VIT C/FOLIC ACID CAPSULE PO SCH (09:20)
[2021-04-23] MEDS: GuaiFENesin SR 600 MG ER TABLET PO SCH ×2 (09:20→20:50)
[2021-04-23] MEDS: DOCUSATE SODIUM 100 MG CAPSULE PO SCH ×2 (09:21→20:50)
[2021-04-23] MEDS: SODIUM ZIRCONIUM CYCLOSILICATE 5 GM POWDER PACKET PO SCH (09:21)
[2021-04-23] MEDS: ATORVASTATIN CALCIUM 40 MG TABLET PO SCH (09:21)
[2021-04-23] MEDS: ASPIRIN 81 MG CHEWABLE TABLET PO SCH (09:21)
[2021-04-23] MEDS: OMEPRAZOLE 20 MG CAPSULE PO SCH (09:21)
[2021-04-23] MEDS: TAMSULOSIN HCL 0.4 MG CAPSULE PO SCH (09:21)
[2021-04-23] MEDS: TACROLIMUS 0.5 MG CAPSULE PO SCH ×2 (09:22→20:50)
[2021-04-23] MEDS: PredniSONE 5 MG TABLET PO SCH (09:22)
[2021-04-23] MEDS: DOXYCYCLINE HYCLATE 100 MG TABLET PO SCH ×2 (09:22→20:50)
[2021-04-23] MEDS: INSULIN GLARGINE,HUM.REC.ANLOG 100 UNITS/ML SQ SCH (09:26)
[2021-04-23] MEDS: ETHYL ALCOHOL 62% ANTISEPTIC NASAL INHALANT 0.6 ML AMPUL NASAL SCH ×2 (09:32→20:50)
[2021-04-23 11:29] VITALS: BP 161/71
[2021-04-23 13:11] LABS: GLUCOMETER DEV NAME(LOC) 5S.1; GLUCOSE,POINT OF CARE 118 MG/DL (70-110)
[2021-04-23 15:25] VITALS: BP 143/77
[2021-04-23] MEDS: INSULIN LISPRO 100 UNITS/ML SQ PRN (17:04)
[2021-04-23 18:06] LABS: GLUCOMETER DEV NAME(LOC) 5N.1C; GLUCOSE,POINT OF CARE 190 MG/DL (70-110)
[2021-04-23 22:06] LABS: GLUCOMETER DEV NAME(LOC) 5S.1; GLUCOSE,POINT OF CARE 158 MG/DL (70-110)
[2021-04-23 23:47] VITALS: BP 141/77
[2021-04-24] MEDS: HEPARIN SODIUM,PORCINE 5,000 UNITS/ML VIAL SQ SCH ×2 (00:18→08:45)
[2021-04-24] MEDS: BENZONATATE 100 MG CAPSULE PO SCH ×2 (00:18→08:46)
[2021-04-24 05:07] VITALS: BP 150/72
[2021-04-24] MEDS: PIPERACILLIN SODIUM/TAZOBACTAM 2.25 GM in DEXTROSE 5%-WATER 50 ML IV SCH (05:47)
[2021-04-24 06:36] LABS: GLUCOMETER DEV NAME(LOC) 5S.1; GLUCOSE,POINT OF CARE 161 MG/DL (70-110)
[2021-04-24 08:03] VITALS: BP 166/99
[2021-04-24 08:27] LABS: C-REACTIVE PROTEIN QUANT 4.05 mg/dL (0.00-0.30); CREATININE 2.66 mg/dL (0.60-1.30); PHOSPHORUS 3.3 mg/dL (2.5-4.9); POTASSIUM 4.9 mmol/L (3.5-5.1)
[2021-04-24] MEDS: PANTOPRAZOLE SODIUM 40 MG/VIAL IVP SCH (08:44)
[2021-04-24] MEDS: VITAMIN B COMP/VIT C/FOLIC ACID CAPSULE PO SCH (08:44)
[2021-04-24] MEDS: ASPIRIN 81 MG CHEWABLE TABLET PO SCH (08:44)
[2021-04-24] MEDS: GuaiFENesin SR 600 MG ER TABLET PO SCH (08:45)
[2021-04-24] MEDS: TAMSULOSIN HCL 0.4 MG CAPSULE PO SCH (08:45)
[2021-04-24] MEDS: ATORVASTATIN CALCIUM 40 MG TABLET PO SCH (08:45)
[2021-04-24] MEDS: OMEPRAZOLE 20 MG CAPSULE PO SCH (08:45)
[2021-04-24] MEDS: PredniSONE 5 MG TABLET PO SCH (08:45)
[2021-04-24] MEDS: HydrALAZINE HCL 20 MG/ML VIAL IVP PRN (08:45)
[2021-04-24] MEDS: DOXYCYCLINE HYCLATE 100 MG TABLET PO SCH (08:45)
[2021-04-24] MEDS: DOCUSATE SODIUM 100 MG CAPSULE PO SCH (08:46)
[2021-04-24] MEDS: TACROLIMUS 0.5 MG CAPSULE PO SCH (08:46)
[2021-04-24] MEDS: INSULIN GLARGINE,HUM.REC.ANLOG 100 UNITS/ML SQ SCH (08:49)
[2021-04-24] MEDS: INSULIN LISPRO 100 UNITS/ML SQ PRN (08:49)
[2021-04-24] MEDS ORDERED: AmLODIPine BESYLATE 5 MG TABLET PO SCH ×2 (09:00)
[2021-04-24] MEDS: ETHYL ALCOHOL 62% ANTISEPTIC NASAL INHALANT 0.6 ML AMPUL NASAL SCH (09:02)
[2021-04-24] MEDS: SODIUM ZIRCONIUM CYCLOSILICATE 5 GM POWDER PACKET PO SCH (09:02)
[2021-04-24 11:31] VITALS: BP 150/75
[2021-04-24] MEDS ORDERED: PRED5TAB2 PO (11:35)
[2021-04-24] MEDS ORDERED: SODI5POW2 PO (11:35)
[2021-04-24] MEDS ORDERED: TACR0.5C21 PO (11:35)
[2021-04-24 12:53] VITALS: BP 150/75
[2021-04-24 20:31] LABS: GLUCOMETER DEV NAME(LOC) 5N.1C; GLUCOSE,POINT OF CARE 163 MG/DL (70-110)
== END 2021-04-24 14:27 | disposition home or self-care (01) | DRG 177 ==
LOC: EMS 10:01 → 5S 20:06 → 5N 21:15 → 5S 04-17 20:00 → 5N 04-23 14:56
PROVIDERS: ADMIT Hospitalist; ATTEND Hospitalist
PROC: 0TB03ZX Excision of Right Kidney, Percutaneous Approach, Diagnostic (ICD-10-PCS; 2021-04-17)
PROC: XW033E5 Introduction of Remdesivir Anti-infective into Peripheral Vein, Percutaneous Approach, New Technology Group 5 (ICD-10-PCS; principal; 2021-04-18)
DX: U07.1 COVID-19 (principal); J12.82 Pneumonia due to coronavirus disease 2019; N17.0 Acute kidney failure with tubular necrosis; T86.11 Kidney transplant rejection; I13.0 Hypertensive heart and chronic kidney disease with heart failure and stage 1 through stage 4 chronic kidney disease, or unspecified chronic kidney disease; T86.19 Other complication of kidney transplant; Y83.0 Surgical operation with transplant of whole organ as the cause of abnormal reaction of the patient, or of later complication, without mention of misadventure at the time of the procedure; E11.22 Type 2 diabetes mellitus with diabetic chronic kidney disease; E11.319 Type 2 diabetes mellitus with unspecified diabetic retinopathy without macular edema; E11.65 Type 2 diabetes mellitus with hyperglycemia; E78.5 Hyperlipidemia, unspecified; I25.10 Atherosclerotic heart disease of native coronary artery without angina pectoris; D72.810 Lymphocytopenia; R09.02 Hypoxemia; R19.7 Diarrhea, unspecified; I95.9 Hypotension, unspecified; R63.0 Anorexia; R79.82 Elevated C-reactive protein (CRP); E86.0 Dehydration; R79.89 Other specified abnormal findings of blood chemistry; E11.649 Type 2 diabetes mellitus with hypoglycemia without coma; E78.00 Pure hypercholesterolemia, unspecified; E86.9 Volume depletion, unspecified; E87.5 Hyperkalemia; N18.9 Chronic kidney disease, unspecified; N40.0 Benign prostatic hyperplasia without lower urinary tract symptoms; W18.2XXA Fall in (into) shower or empty bathtub, initial encounter; I50.9 Heart failure, unspecified; Z82.49 Family history of ischemic heart disease and other diseases of the circulatory system; Z79.4 Long term (current) use of insulin; Z79.899 Other long term (current) drug therapy; Y93.E1 Activity, personal bathing and showering; Z86.73 Personal history of transient ischemic attack (TIA), and cerebral infarction without residual deficits; Z95.1 Presence of aortocoronary bypass graft; Z68.24 Body mass index [BMI] 24.0-24.9, adult; Y92.009 Unspecified place in unspecified non-institutional (private) residence as the place of occurrence of the external cause
CPT/HCPCS: 50200; 71045; 71250; 76770; 76942; 80048; 80053; 80076; 80197; 81003; 82550; 82570; 82728; 82962; 83615; 83735; 84100; 84145; 84156; 84166; 84300; 84484; 85025; 85379; 86140; 87070; 87081; 87205; 87449; 87804; 87899; 88300; 93005; 93306; 99291; C9113; J0360; J0456; J0696; J1644; J1720; J1815; J2310; J2370; J2543; J3010; J3370; J7030; J7050; J7060; J7507; J7517; Q9967; 36415-L1; 36415-TC; U0003